=== PATIENT | male | born 1990 | race Caucasian/White ===

== ENCOUNTER 2016-12-21 10:28 | Emergency (ER) | payer OTHER ==
[~2016-12-21] VITALS: Ht 180.3 cm; Wt 68.0 kg
[2016-12-21 10:43] VITALS: BP 156/92; PULSE 67; RESP 18; O2SAT 100
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
[2016-12-21] MEDS ORDERED: CYCL5TAB PO (13:33)
== END 2016-12-21 13:25 | disposition home or self-care (01) ==
LOC: SED 10:28
DX: S06.0X0A Concussion without loss of consciousness, initial encounter (principal); S16.1XXA Strain of muscle, fascia and tendon at neck level, initial encounter; V49.40XA Driver injured in collision with unspecified motor vehicles in traffic accident, initial encounter; Y93.89 Activity, other specified; Y99.8 Other external cause status; Y92.410 Unspecified street and highway as the place of occurrence of the external cause; F17.210 Nicotine dependence, cigarettes, uncomplicated

== ENCOUNTER 2016-12-29 14:06 | Emergency (ER) | payer OTHER ==
[~2016-12-29] VITALS: Ht 180.3 cm; Wt 72.7 kg
[~2016-12-29 14:06] MED LIST: CYCL5TAB PO
[2016-12-29 14:16] VITALS: BP 157/91; PULSE 79; RESP 14; O2SAT 99
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
[2016-12-29 16:21] VITALS: BP 124/75; PULSE 71; RESP 14; O2SAT 100
[2016-12-29 16:55] VITALS: BP 124/75; PULSE 71; RESP 14; O2SAT 100
== END 2016-12-29 16:30 | disposition home or self-care (01) ==
LOC: SED 14:06
DX: S06.0X1A Concussion with loss of consciousness of 30 minutes or less, initial encounter (principal); V89.9XXA Person injured in unspecified vehicle accident, initial encounter; Y93.9 Activity, unspecified; Y92.9 Unspecified place or not applicable; Y99.9 Unspecified external cause status; F43.10 Post-traumatic stress disorder, unspecified; F17.200 Nicotine dependence, unspecified, uncomplicated; F12.90 Cannabis use, unspecified, uncomplicated